=== PATIENT | male | born 1940 | race Caucasian/White ===

== ENCOUNTER → 2017-12-03 | Day surgery (SDC) | payer MEDICARE, OTHER ==
[2017-11-26 08:47] LABS: BASOPHILS % 0.6 % (0.0-1.0); EOSINOPHILS # (AUTO) 0.7 (0.0-0.4); EOSINOPHILS % 10.1 % (0.0-6.0); HEMATOCRIT 38.8 % (38.2-49.6); HEMOGLOBIN 13.4 g/dL (14.0-18.0); LYMPHOCYTES # (AUTO) 1.4 (1.0-3.2); LYMPHOCYTES % 21.8 % (18.0-39.1); MEAN CORPUSCULAR HEMOGLOBIN 29.7 pg (28-32); MEAN CORPUSCULAR HGB CONC 34.5 g/dL (31-35); MONOCYTES # (AUTO) 0.6 (0.2-0.8); MONOCYTES % 9.8 % (4.4-11.3); NEUTROPHILS # (AUTO) 3.7 (2.1-6.9); NEUTROPHILS % 57.4 % (38.7-80.0); PLATELET COUNT 187 x10e3/uL (140-360); RED BLOOD COUNT 4.51 x10e6/uL (4.3-5.7); RED CELL DISTRIBUTION WIDTH 14.3 % (11.7-14.4)
[~2017-12-03] MED LIST: ASPIR 8181 MG PO; BUPIVACAINE HCL 0.5% INJ 30 ML VIAL INJ ONE; CELEBREX100 MG PO; CLINDAMYCIN PHOS 900MG/ D5W 50 50 ML IV ONE; DEXAMETHASONE SOD PHOS INJ 4 MG/ML VIAL ONE; DULCOLAX5 MG PO; FENTANYL CITRATE/PF 100MCG/2 ML INJ ONE; LEVOTHYROXINE112 MCG PO; LIDOCAINE HCL 2% LOCAL INJ 5 ML SDV VIAL INJ ONE; LOSARTAN POTASS25 MG PO; MULTIVITAMINS1 EAC7 PO; NAPROXEN250 MG PO; OMEPRAZOLE40 MG PO; ONDANSETRON HCL INJ 2 MG/ML VIAL ONE; PEPCID20 MG PO; PRESERVISION T1 EACH PO; PROAIR HFA INH8.5 GM PO; PROPOFOL IV EMULSION 10 MG/ML 20 ML VIAL ONE; ROCURONIUM BROMIDE 10 MG/ML 5ML VIAL ONE; SAW PALMETTO160 MG PO; SEVOFLURANE INHAL SOLN 250 ML PEN BTL ONE; SKELAXIN800 MG PO; SPIRIVA18 MCG INH; SUCCINYLCHOLINE 200 MG/10 ML SYR ONE; SYMBICORT 80-10.2 GM INH; TYLENOL # 31 EA PO; ULTRAM 50MG50 MG PO
--- NOTE | 2017-12-03 15:25 | Operative Report ---
DATE OF PROCEDURE: December 03, 2017 PREOPERATIVE DIAGNOSES 1. Right knee medial meniscus tear. 2. Right knee degenerative joint disease of the knee. POSTOPERATIVE DIAGNOSES 1. Right knee medial meniscus tear. 2. Right knee degenerative joint disease of the knee. OPERATIONS/PROCEDURES PERFORMED 1. Right knee examination under anesthesia. 2. Right knee arthroscopy. 3. Right knee partial medial meniscectomy. 4. Right knee chondroplasties of the patella, trochlea, medial femoral condyle, medial tibial plateau, lateral femoral condyle and lateral tibial plateau. LIVESTOCK HANDLER: None. ANESTHESIA: General endotracheal intubation anesthesia. IV FLUIDS: Per the anesthesia record. DESCRIPTION OF PROCEDURE: Mr. Caro was taken to the operating room and placed in the supine position on the operating table. Following the induction of general anesthesia, as well as endotracheal intubation, the patient's right lower extremity was examined under anesthesia. He was found to have a mild effusion within the knee joint but an, otherwise, ligamentously stable knee. The patient's lower extremity was prepped and draped in the standard surgical fashion. A 2-portal technique was used to provide this patient arthroscopic evaluation of the knee joint. Examination of the suprapatellar pouch, medial and lateral gutters found no evidence of loose bodies. There was, however, evidence of chondromalacia of the patellar and trochlear surfaces. The scope was advanced to the medial compartment. Examination of the medial compartment demonstrated a torn and macerated medial meniscus. There was also chondromalacia of the articulating surfaces. A combination of biting forceps and a motorized shaver was used to resect the torn portion of the meniscus. Chondroplasties of the medial femoral condyle and medial tibial plateau were performed at this time. The scope was then advanced into the intracondylar notch. The anterior cruciate ligament was identified and found to be intact. The scope was advanced to the lateral compartment. There was no evidence of a meniscus tear. There was chondromalacia of the articulating surfaces. A shaver was used to provide a chondroplasty of the lateral femoral condyle and lateral tibial plateau. The scope was then placed in the suprapatellar pouch, and chondroplasties of the patella and trochlea were performed. The knee was deflated of its sterile normal saline. Each of the portal sites were closed using 4-0 nylon suture. The portal sites, as well as the knee itself, were then injected with 0.5% Marcaine with epinephrine. Sterile dressings were applied. The patient was awakened and taken to the postanesthesia care unit in stable condition. Job#: [id number]
== END | disposition home or self-care (01) ==
LOC: OR 11:07
PROVIDERS: ATTEND Specialist
DX: S83.241A Other tear of medial meniscus, current injury, right knee, initial encounter (principal); M17.11 Unilateral primary osteoarthritis, right knee; M22.41 Chondromalacia patellae, right knee; I87.2 Venous insufficiency (chronic) (peripheral); G62.9 Polyneuropathy, unspecified; M10.9 Gout, unspecified; J44.9 Chronic obstructive pulmonary disease, unspecified; I10 Essential (primary) hypertension; E03.9 Hypothyroidism, unspecified; K21.9 Gastro-esophageal reflux disease without esophagitis; K57.90 Diverticulosis of intestine, part unspecified, without perforation or abscess without bleeding; X58.XXXA Exposure to other specified factors, initial encounter; Z79.82 Long term (current) use of aspirin; Z87.891 Personal history of nicotine dependence
CPT/HCPCS: 29881; 36415; 85025; J1100; J2001; J2405

== ENCOUNTER 2018-07-09 11:39 | Emergency (ER) | payer MEDICARE, OTHER ==
[~2018-07-09] VITALS: Ht 172.7 cm; Wt 95.3 kg
[~2018-07-09 11:39] MED LIST changes: -BUPIVACAINE HCL 0.5% INJ 30 ML VIAL INJ ONE; -CLINDAMYCIN PHOS 900MG/ D5W 50 50 ML IV ONE; -DEXAMETHASONE SOD PHOS INJ 4 MG/ML VIAL ONE; -FENTANYL CITRATE/PF 100MCG/2 ML INJ ONE; -LIDOCAINE HCL 2% LOCAL INJ 5 ML SDV VIAL INJ ONE; -ONDANSETRON HCL INJ 2 MG/ML VIAL ONE; -PROPOFOL IV EMULSION 10 MG/ML 20 ML VIAL ONE; -ROCURONIUM BROMIDE 10 MG/ML 5ML VIAL ONE; -SEVOFLURANE INHAL SOLN 250 ML PEN BTL ONE; -SUCCINYLCHOLINE 200 MG/10 ML SYR ONE
[2018-07-09] MEDS ORDERED: FAMOTIDINE20 MG PO (12:14)
[2018-07-09] MEDS ORDERED: SYMBICORT 80-10.2 GM INH (12:14)
[2018-07-09] MEDS ORDERED: CELEBREX200 MG PO (12:14)
[2018-07-09] MEDS ORDERED: XARELTO10 MG PO (12:14)
[2018-07-09] MEDS ORDERED: GABAPENTIN100 MG PO (12:14)
[2018-07-09] MEDS ORDERED: NORCO 7.5-3251 EACH PO (12:14)
[2018-07-09 13:16] VITALS: BP 144/79
== END 2018-07-09 13:20 | disposition home or self-care (01) ==
LOC: ER 11:39
DX: M79.661 Pain in right lower leg (principal); M12.861 Other specific arthropathies, not elsewhere classified, right knee; Z96.651 Presence of right artificial knee joint
CPT/HCPCS: 93971; 99283

== ENCOUNTER → 2019-10-03 | Outpatient (CLI) | payer MEDICARE, OTHER ==
[~2019-10-03] MED LIST changes: +CELEBREX200 MG PO; +FAMOTIDINE20 MG PO; +GABAPENTIN100 MG PO; +NORCO 7.5-3251 EACH PO; +XARELTO10 MG PO
--- NOTE | 2019-10-03 19:01 | Diagnostic Imaging Report ---
EXAM: CT Chest WITHOUT contrast 10/03/2019 5:00 PM INDICATION: ^[id number] ^[id number] ^ABN CHEST XRAY COMPARISON: No prior exam has been provided for comparison TECHNIQUE: Chest was scanned utilizing a multidetector helical scanner from the lung apex through the level of the adrenal glands without administration of IV contrast. Absence of intravenous contrast decreases sensitivity for detection of lymphadenopathy and vascular pathology. Coronal and sagittal reformations were obtained. Routine protocol was performed. Dose modulation, iterative reconstruction, and/or weight based adjustment of the mA/kV was utilized to reduce the radiation dose to as low as reasonably achievable. IV CONTRAST: None RADIATION DOSE: Total DLP: 597.87 mGy*cm Estimated effective dose: (DLP x 0.014 x size factor) mSv COMPLICATIONS: None FINDINGS: LINES/ TUBES: None. LUNGS AND AIRWAYS: There is advanced centrilobular and paraseptal emphysematous change. Calcified granulomata are seen in the right and left lower lobes. There are scattered subpleural reticulation in the lower lobes and interstitial prominence in the posterior right upper lobe. 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 Trachea and main bronchi are clear. PLEURA: No pleural effusion or pneumothorax. HEART AND MEDIASTINUM: No mediastinal, hilar or axillary lymphadenopathy. There are scattered subcentimeter mediastinal nodes. The heart is normal in size.. There is no pericardial effusion. The thoracic aorta is atherosclerotic with scattered calcified plaque. The ascending aorta is ectatic measuring 4.6 cm diameter. Main pulmonary artery measures 2.5 cm, normal. There is extensive coronary artery calcification as well as calcifications of the aortic valve. UPPER ABDOMEN: Included portions of the liver, spleen, pancreas, and adrenals and kidneys show no evidence for focal pathology. BONES: No acute or suspicious bony lesions. A right shoulder replacement is noted. SOFT TISSUES: Superficial surrounding soft tissue unremarkable. IMPRESSION: 1. No CT evidence for acute chest pathology. 2. Apparent left upper lobectomy changes. Advanced centrilobular and paraseptal emphysematous change. Fibrotic changes in the lower lobes and right upper lobe. 3. The ascending thoracic aorta is ectatic measuring 4.6 cm. Recommend correlation with previous CT. Consider CTA or MRA of the thoracic aorta if additional evaluation is required. 4. Extensive coronary artery calcification is seen. Signed by: Dr. Douglas Gonzalez M.D. on 10/03/2019 6:58 PM
== END ==
LOC: CT 17:01
PROVIDERS: ATTEND Family Medicine
DX: R93.89 Abnormal findings on diagnostic imaging of other specified body structures (principal)
CPT/HCPCS: 71250